=== PATIENT | female | born 1935 | race Caucasian/White ===

== ENCOUNTER → 2017-05-26 | Outpatient (CLI) | payer OTHER, BC ==
[~2017-05-26] VITALS: Ht 157.5 cm; Wt 82.0 kg
[~2017-05-26] MED LIST: AGGRENOX 25 MG1 EACH PO; AGGRENOX CAPSU1 EACH PO; APAP500 PO; AVALIDE 150-121 EACH PO; COUMADIN 2 MG TA2 M1; COUMADIN 5 MG TA5 M1 PO; CRESTOR5 MG PO; GLUCOSAMINE1000 MG; HYDROCHLOROTH12.5 MG; HYDROCHLOROTHIA25 M1 PO; HYDROCODON-ACE1 EACH; LIVALO2 MG PO; MECLIZINE 25 MG25 M1 PO; MULTI-VITAMIN1 EAC1 PO; NORVASC5 MG PO; OMEPRAZOLE 20 M20 M1; PHENERGAN25 MG RE; PLAVIX 75 MG TA75 M1 PO; PRILOSEC40 MG PO; TOPROL XL 100M100 M1 PO; TOPROL XL50 MG PO; VALIUM5 MG PO
--- NOTE | ~2017-05-26 | H ---
[facility] [address]ian [place] [address] HISTORY AND PHYSICAL Name: KATE GOLDEN Room #: REG [facility].#: [id number] Admission: 05/26/17 Attend Phys: Giuseppe Rivero DO Discharge: Date of : 37 Report #: [id number] THIS REPORT FOR: //name// CC: Lesly Rivero DATE OF SERVICE: 05/26/2017 REFERRING PHYSICIAN: Lesly Nguyen M.D. CHIEF COMPLAINT: Left knee pain. HISTORY OF PRESENT ILLNESS: As you know, the patient is a very pleasant 81-year-old female who has had a long-standing history of left knee pain that was exacerbated in 03/2017. The patient denies injury or trauma that may have led to symptoms. She continues to experience pain from her right total knee arthroplasty and is concerned about undergoing a left total knee arthroplasty due to the lack of improvement from her right side. She did have a left knee injection under x-ray imaging, which was ineffective at her orthopedic surgeon's office. Due to lack of improvement, she was referred to our clinic to discuss options for treatment. She indicates pain is steady; describes the pain as shooting, aching and sharp; places current pain score 7/10, daily average is 7-8/10 and worst pain 10/10. The patient indicates movement is exacerbating symptoms. No movement and rest appear to improve pain. She has been referred to our clinic to discuss options for treatment for chronic left knee pain secondary to osteoarthritis and likely meniscal injury. PAST MEDICAL HISTORY: 1. Hypertension. 2. History of transient ischemic attack with ongoing anticoagulation. PAST SURGICAL HISTORY: Breast surgery in 1986, colon surgery in 2006 and total knee arthroplasty in 2009. SOCIAL HISTORY: The patient denies tobacco, alcohol, IV or illicit drug use. 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 She is unaccompanied at today's visit. REVIEW OF SYSTEMS: Positive for night sweats, fatigue and weakness, frequent urination, nocturia, change in force or stream of urination and constant dribbling to urine, changes in hair and nail texture, insomnia, heat and cold intolerance, bleeding and bruising tendencies, difficulty with ambulation secondary to bilateral knee pain, left greater than right and osteoarthritis. All the other review of systems negative per 12-point review of systems, other than those listed in the history of present illness. [address] [address] HISTORY AND PHYSICAL Name: KATE GOLDEN Room #: REG [facility]#: [id number] Admission: 05/26/17 Attend Phys: Giuseppe Rivero DO Discharge: Date of : 37 Report #: [id number] Pain impact score 41/70, indicating [id number] interference of daily activities secondary to pain. ALLERGIES: No known drug allergies. CURRENT MEDICATIONS: Livalo 2 mg once a day, amlodipine 5 mg per day, Plavix 75 mg per day and metoprolol 50 mg 1-1/2 tabs per day. IMAGING: No imaging available. PHYSICAL EXAMINATION: VITAL SIGNS: Blood pressure 137/83, pulse is 80 and respiratory rate 16 and unlabored. The patient is 97% on room air. Height 5 feet 2 inches tall, weight 180 pounds, BMI calculated at 33.1. GENERAL: Well-developed, well-nourished, well-hydrated 81-year-old female, appearing her stated age. She is placing current pain score at 7/10, left knee. HEENT: Normocephalic, atraumatic. Pupils equal, round and reactive to light. Extraocular muscles are intact. Sclerae nonicteric, without injection. NEUROLOGIC: Cranial nerves 2-12 grossly intact. Speech is fluent. LUNGS: Clear. No wheezing, rhonchi or rales. CARDIOVASCULAR: Regular. No appreciable gallop or rub. ABDOMEN: Soft, nontender and nondistended. Normoactive bowel sounds. EXTREMITIES: No clubbing, no cyanosis, no edema. MUSCULOSKELETAL: There is palpatory tenderness over the left knee lateral portion when compared to the right. There is a well-healed surgical scar over the right knee from total knee arthroplasty. Seated straight leg raising negative. Supine straight leg raising negative on the left. Standing from a seated position exacerbates left knee pain. Ambulation is antalgic, favoring left lower extremity over right. There is noted pain with active and passive range of motion of the left knee when compared to the right. Drawer tests are negative, both anteriorly and posteriorly. There is noted no laxity of the medial or lateral collateral ligaments. There is crepitus with movement. ASSESSMENT: 1. Severe left knee osteoarthritis. 2. Residual pain, status post right total knee arthroplasty. 3. Meniscal injury of the left knee. PLAN: 1. The patient has been referred to our service for ongoing left knee pain. She suffers from severe arthritic changes of the left knee and I believe meniscal injury as well to the left knee. This is likely due to typical wear and tear with osteoarthritis. There was no specific injury or trauma that may have led to symptom development. The patient has been followed by Orthopedics and they have been advising the patient total knee arthroplasty will be [address] [address] HISTORY AND PHYSICAL Name: KATE GOLDEN Room #: [facility]#: [id number] Admission: 05/26/17 Attend Phys: Giuseppe Rivero DO Discharge: Date of : 37 Report #: [id number] necessary. At this time, the patient does not wish to undergo total knee arthroplasty with concerns of pain generation similar to what she has seen with her right total knee arthroplasty. She wishes to discuss options. 2. We discussed with the patient physical therapy, stretching exercises as a treatment option. She has been advised of this also by her Orthopedic Surgery team. We discussed medication management with low-dose opioid and possible use of topical anti-inflammatory agents. We cannot use oral nonsteroidal anti-inflammatories due to concomitant use of Plavix. We discussed with the patient intra-articular knee injections for which the patient will have to come off Plavix for at least 2 days. We also discussed surgical options described by her Orthopedic Surgery team. After reviewing risks and benefits of all proposed treatment options, the patient chose more conservative treatment option. 3. The patient will begin topical agents over the left knee. She was given samples of Voltaren and Pennsaid to trial. If either of these is effective, she can contact our clinic. We are aware this medication has some nonsteroidal anti-inflammatory component, but the absorption of this medication is extremely low and should not cause any bleeding issues. She can apply this topically as necessary. If she finds efficacy with this medication, contact our clinic and we will provide a full prescription. 4. The patient is considering exercise options. At present, she is looking into formalized physical therapy. I recommend that she at least entertain the idea and maybe try a couple of sessions and determine if she will see improvement. Certainly if she does, I would be more than willing to assist in writing for a longer period of time to gain efficacy. This can also be done through her primary care team. 5. Consideration of total knee arthroplasty will be ultimately necessary. I do not feel that long-term treatment options in oral medications or even intra-articular knee injections will be beneficial. Total knee arthroplasty may be necessary. She will need to discuss this with orthopedic surgeon. 6. We wish to thank you for the opportunity to see the patient in consultation. We will be available to see her back anytime for interventional treatments and discuss options for medication therapy. She is a very delightful 81-year-old female and we will be happy to see her back if necessary. <ELECTRONICALLY SIGNED> By: Giuseppe Rivero DO 06/03/17 [id number] Giuseppe Rivero DO /nt
[2017-05-26 13:02] VITALS: BP 137/83
== END | disposition home or self-care (01) ==
LOC: PAIN 06:48
DX: M17.12 Unilateral primary osteoarthritis, left knee (principal); I10 Essential (primary) hypertension; Z86.73 Personal history of transient ischemic attack (TIA), and cerebral infarction without residual deficits; Z98.890 Other specified postprocedural states; Z79.899 Other long term (current) drug therapy; Z68.33 Body mass index [BMI] 33.0-33.9, adult; Z79.1 Long term (current) use of non-steroidal anti-inflammatories (NSAID); Z87.891 Personal history of nicotine dependence; E11.9 Type 2 diabetes mellitus without complications

== ENCOUNTER → 2017-11-05 | Outpatient (CLI) | payer OTHER, BC | LOC: RAD 11:12 | DX: Z12.31 Encounter for screening mammogram for malignant neoplasm of breast (principal) ==

== ENCOUNTER → 2017-11-11 | Outpatient (CLI) | payer OTHER, BC | LOC: ULTRA 02:43 | DX: N63.20 Unspecified lump in the left breast, unspecified quadrant (principal) ==

== ENCOUNTER → 2018-11-16 | Outpatient (CLI) | payer OTHER, BC | LOC: RAD 01:36 | DX: Z12.31 Encounter for screening mammogram for malignant neoplasm of breast (principal) ==

== ENCOUNTER → 2019-10-27 | Outpatient (CLI) | payer OTHER, BC | LOC: SJCVCIMAG 13:06 → SJCVC 13:06 | DX: I21.29 ST elevation (STEMI) myocardial infarction involving other sites (principal); R94.31 Abnormal electrocardiogram [ECG] [EKG]; I25.10 Atherosclerotic heart disease of native coronary artery without angina pectoris; I10 Essential (primary) hypertension; E78.00 Pure hypercholesterolemia, unspecified; Z79.01 Long term (current) use of anticoagulants; Z79.84 Long term (current) use of oral hypoglycemic drugs; Z79.899 Other long term (current) drug therapy; Z82.49 Family history of ischemic heart disease and other diseases of the circulatory system; Z87.891 Personal history of nicotine dependence; Z88.8 Allergy status to other drugs, medicaments and biological substances ==

== ENCOUNTER → 2020-10-29 | Outpatient (CLI) | payer OTHER, BC | LOC: BC 10-15 15:59 | PROVIDERS: ATTEND Internal Medicine | DX: Z12.31 Encounter for screening mammogram for malignant neoplasm of breast (principal) ==

== ENCOUNTER → 2020-12-04 | Outpatient (CLI) | payer OTHER, BC | LOC: SJCVC 11:31 | PROVIDERS: ATTEND Internal Medicine Cardiovascular Disease | DX: I44.0 Atrioventricular block, first degree (principal); R94.31 Abnormal electrocardiogram [ECG] [EKG]; R07.9 Chest pain, unspecified; I25.10 Atherosclerotic heart disease of native coronary artery without angina pectoris; I10 Essential (primary) hypertension; E78.00 Pure hypercholesterolemia, unspecified; I47.1 Supraventricular tachycardia; R00.2 Palpitations; R60.9 Edema, unspecified; Z88.8 Allergy status to other drugs, medicaments and biological substances; Z79.899 Other long term (current) drug therapy; Z87.891 Personal history of nicotine dependence; Z72.89 Other problems related to lifestyle; Z86.73 Personal history of transient ischemic attack (TIA), and cerebral infarction without residual deficits ==

== ENCOUNTER → 2020-12-27 | Outpatient (CLI) | payer OTHER, BC | LOC: SJCVCIMAG 07:12 | PROVIDERS: ATTEND Internal Medicine Cardiovascular Disease | DX: I45.10 Unspecified right bundle-branch block (principal); I49.3 Ventricular premature depolarization; I25.10 Atherosclerotic heart disease of native coronary artery without angina pectoris; I10 Essential (primary) hypertension; E78.00 Pure hypercholesterolemia, unspecified; I47.1 Supraventricular tachycardia; E78.5 Hyperlipidemia, unspecified; Z90.710 Acquired absence of both cervix and uterus; Z98.890 Other specified postprocedural states; Z88.8 Allergy status to other drugs, medicaments and biological substances; Z79.899 Other long term (current) drug therapy; Z87.891 Personal history of nicotine dependence; Z86.73 Personal history of transient ischemic attack (TIA), and cerebral infarction without residual deficits; Z82.49 Family history of ischemic heart disease and other diseases of the circulatory system ==

== ENCOUNTER → 2021-01-24 | Outpatient (CLI) | payer OTHER, BC | LOC: SJCVC 10:02 | PROVIDERS: ATTEND Internal Medicine Cardiovascular Disease | DX: I44.0 Atrioventricular block, first degree (principal); R94.31 Abnormal electrocardiogram [ECG] [EKG]; I49.3 Ventricular premature depolarization; I10 Essential (primary) hypertension; I25.10 Atherosclerotic heart disease of native coronary artery without angina pectoris; E78.00 Pure hypercholesterolemia, unspecified; I47.1 Supraventricular tachycardia; I95.1 Orthostatic hypotension; R42 Dizziness and giddiness; R06.00 Dyspnea, unspecified; I25.2 Old myocardial infarction; Z86.73 Personal history of transient ischemic attack (TIA), and cerebral infarction without residual deficits; Z95.828 Presence of other vascular implants and grafts; R53.83 Other fatigue; Z88.8 Allergy status to other drugs, medicaments and biological substances; Z79.899 Other long term (current) drug therapy; Z87.891 Personal history of nicotine dependence; Z72.89 Other problems related to lifestyle ==

== ENCOUNTER → 2021-03-04 | Outpatient (CLI) | payer OTHER, BC | LOC: SJCVC 13:46 | PROVIDERS: ATTEND Internal Medicine Cardiovascular Disease | DX: R94.31 Abnormal electrocardiogram [ECG] [EKG] (principal); I49.3 Ventricular premature depolarization; I25.10 Atherosclerotic heart disease of native coronary artery without angina pectoris; I10 Essential (primary) hypertension; E78.00 Pure hypercholesterolemia, unspecified; I47.1 Supraventricular tachycardia; R60.9 Edema, unspecified; R42 Dizziness and giddiness; R53.1 Weakness; E78.5 Hyperlipidemia, unspecified; Z86.73 Personal history of transient ischemic attack (TIA), and cerebral infarction without residual deficits; Z79.899 Other long term (current) drug therapy; Z87.891 Personal history of nicotine dependence; Z72.89 Other problems related to lifestyle; Z88.1 Allergy status to other antibiotic agents ==

== ENCOUNTER → 2021-03-25 | Outpatient (CLI) | payer OTHER, BC | LOC: SJCVC 14:10 | PROVIDERS: ATTEND Internal Medicine Cardiovascular Disease | DX: R94.31 Abnormal electrocardiogram [ECG] [EKG] (principal); I44.0 Atrioventricular block, first degree; I49.3 Ventricular premature depolarization; I25.10 Atherosclerotic heart disease of native coronary artery without angina pectoris; I10 Essential (primary) hypertension; E78.00 Pure hypercholesterolemia, unspecified; R06.09 Other forms of dyspnea; E78.5 Hyperlipidemia, unspecified; Z87.891 Personal history of nicotine dependence; Z72.89 Other problems related to lifestyle; Z79.899 Other long term (current) drug therapy ==

== ENCOUNTER → 2021-05-30 | Outpatient (CLI) | payer OTHER, BC | LOC: SJCVC 14:05 | PROVIDERS: ATTEND Internal Medicine Cardiovascular Disease | DX: R94.31 Abnormal electrocardiogram [ECG] [EKG] (principal); I44.0 Atrioventricular block, first degree; I49.3 Ventricular premature depolarization; I10 Essential (primary) hypertension; I47.1 Supraventricular tachycardia; I25.10 Atherosclerotic heart disease of native coronary artery without angina pectoris; E78.5 Hyperlipidemia, unspecified; Z86.73 Personal history of transient ischemic attack (TIA), and cerebral infarction without residual deficits; Z79.899 Other long term (current) drug therapy; Z88.8 Allergy status to other drugs, medicaments and biological substances; Z72.89 Other problems related to lifestyle; Z87.891 Personal history of nicotine dependence ==

== ENCOUNTER → 2021-07-29 | Outpatient (CLI) | payer OTHER, BC | LOC: SJCVC 13:34 | PROVIDERS: ATTEND Internal Medicine Cardiovascular Disease | DX: R94.31 Abnormal electrocardiogram [ECG] [EKG] (principal); I44.0 Atrioventricular block, first degree; I44.4 Left anterior fascicular block; I25.10 Atherosclerotic heart disease of native coronary artery without angina pectoris; I10 Essential (primary) hypertension; E78.00 Pure hypercholesterolemia, unspecified; I47.1 Supraventricular tachycardia; I49.3 Ventricular premature depolarization; R60.9 Edema, unspecified; E78.5 Hyperlipidemia, unspecified; Z86.73 Personal history of transient ischemic attack (TIA), and cerebral infarction without residual deficits; Z87.891 Personal history of nicotine dependence; Z72.89 Other problems related to lifestyle; Z79.899 Other long term (current) drug therapy; Z88.8 Allergy status to other drugs, medicaments and biological substances ==